=== PATIENT | male | born 1960 | race Caucasian/White ===

== ENCOUNTER 2020-11-04 12:44 | Emergency (ER) | payer MEDICARE ==
[~2020-11-04] VITALS: Ht 157.5 cm; Wt 75.0 kg
[2020-11-04] MEDS ORDERED: IBUPROFEN 600MG TABLET PO ONE (16:45)
[2020-11-04] MEDS ORDERED: GABA100C MT (17:20)
[2020-11-04 17:23] VITALS: BP 134/81
== END 2020-11-04 17:32 | disposition home or self-care (01) ==
LOC: ER 12:44
DX: R07.89 Other chest pain (principal); M25.512 Pain in left shoulder; M25.511 Pain in right shoulder; R03.0 Elevated blood-pressure reading, without diagnosis of hypertension; E11.9 Type 2 diabetes mellitus without complications
CPT/HCPCS: 71046; 93005; 99283

== ENCOUNTER → 2021-10-24 | Emergency (ER) | payer OTHER ==
[~2021-10-24] VITALS: Ht 157.5 cm; Wt 66.0 kg
[~2021-10-24] MED LIST: ACET-2708 MT; ACETAMINOPHEN 325MG TABLET PO ONE; GABA100C MT; HYDROCODONE/ACETAMINOPHEN 5/325MG TABLET PO ONE
[2021-10-25 02:26] VITALS: BP 111/84
== END | disposition home or self-care (01) ==
LOC: ER 15:48
DX: S09.8XXA Other specified injuries of head, initial encounter (principal); H72.92 Unspecified perforation of tympanic membrane, left ear; W18.39XA Other fall on same level, initial encounter; Y93.89 Activity, other specified; Y92.89 Other specified places as the place of occurrence of the external cause; Y99.8 Other external cause status; E11.9 Type 2 diabetes mellitus without complications; Z88.0 Allergy status to penicillin
CPT/HCPCS: 99284

== ENCOUNTER 2024-01-06 11:12 | Emergency (ER) | payer MEDICAID, MEDICARE, OTHER ==
[~2024-01-06] VITALS: Ht 167.6 cm; Wt 70.3 kg
[~2024-01-06 11:12] MED LIST changes: -ACETAMINOPHEN 325MG TABLET PO ONE; -HYDROCODONE/ACETAMINOPHEN 5/325MG TABLET PO ONE
[2024-01-06 11:15] VITALS: BP 127/72; PULSE 86; RESP 18; TEMP 98.2; O2SAT 98
== END 2024-01-06 14:04 | disposition home or self-care (01) ==
LOC: ER 11:35
DX: B34.9 Viral infection, unspecified (principal); E11.9 Type 2 diabetes mellitus without complications; Z88.0 Allergy status to penicillin; Z20.822 Contact with and (suspected) exposure to COVID-19
CPT/HCPCS: 71045; 87426; 87804; 99284